=== PATIENT | female | born 1995 | race African-American/Black ===

== ENCOUNTER 2018-07-24 08:40 | Emergency (ER) | payer MEDICAID, OTHER ==
[~2018-07-24] VITALS: Ht 160 cm; Wt 86.0 kg
[~2018-07-24 08:40] MED LIST: ALBUTEROL
[2018-07-24] MEDS ORDERED: KETOROLAC 30MG/ML VIAL IM ONE (16:00)
[2018-07-24] MEDS ORDERED: HYDROCODONE/ACETAMINOPHEN 5/325MG TABLET PO ONE (16:45)
[2018-07-24 16:59] VITALS: BP 116/74
== END 2018-07-24 17:05 | disposition home or self-care (01) ==
LOC: ER 08:40
DX: S93.491A Sprain of other ligament of right ankle, initial encounter (principal); J45.909 Unspecified asthma, uncomplicated; F12.10 Cannabis abuse, uncomplicated; Z98.890 Other specified postprocedural states; W03.XXXA Other fall on same level due to collision with another person, initial encounter; Y93.41 Activity, dancing; Y92.018 Other place in single-family (private) house as the place of occurrence of the external cause
CPT/HCPCS: 73610; 81025; 96372; 99283; J1885

== ENCOUNTER 2020-10-03 03:29 | Emergency (ER) | payer MEDICAID, OTHER ==
[~2020-10-03] VITALS: Ht 160 cm; Wt 87.0 kg
[2020-10-03] MEDS ORDERED: KETOROLAC 30MG/ML VIAL IM ONE (04:00)
[2020-10-03] MEDS ORDERED: ACET-2708 MT (05:21)
[2020-10-03] MEDS ORDERED: NAPR-1176 MT (05:21)
[2020-10-03 05:42] VITALS: BP 130/73
== END 2020-10-03 05:43 | disposition home or self-care (01) ==
LOC: ER 03:29
DX: M25.561 Pain in right knee (principal); J45.909 Unspecified asthma, uncomplicated; F12.10 Cannabis abuse, uncomplicated
CPT/HCPCS: 73562; 96372; 99283; J1885